=== PATIENT | male | born 1990 | race Caucasian/White ===

== ENCOUNTER 2019-06-26 12:15 | Emergency (ER) | payer OTHER ==
[~2019-06-26] VITALS: Ht 167.6 cm; Wt 72.6 kg
[2019-06-26 12:27] VITALS: BP_SYST 142
[2019-06-26] MEDS ORDERED: DIPH-TET-PERTUS Vaccine 0.5 ML VIAL (ADACEL) I.M. ONE (13:00)
[2019-06-26 13:36] VITALS: BP_SYST 128
== END 2019-06-26 13:36 | disposition home or self-care (01) ==
LOC: SED 12:15
DX: S61.311A Laceration without foreign body of left index finger with damage to nail, initial encounter (principal); W26.8XXA Contact with other sharp object(s), not elsewhere classified, initial encounter; Y93.89 Activity, other specified; Y92.89 Other specified places as the place of occurrence of the external cause; Y99.8 Other external cause status
CPT/HCPCS: 90715; 99283

== ENCOUNTER 2022-02-05 10:23 | Emergency (ER) | payer SELFPAY ==
[~2022-02-05] VITALS: Ht 167.6 cm; Wt 61.2 kg
[2022-02-05 10:23] VITALS: BP_SYST 117
[2022-02-05] MEDS ORDERED: ACETAMINOPHEN 500 MG TABLET ONE (10:50)
--- NOTE | 2022-02-05 13:33 | NUR ---
BROUGHT BACK TO HALLWAY VIA WHEELCHAIR, AWAITING TO BE SEEN BY
--- NOTE | 2022-02-05 13:35 | NUR ---
Pt brought by self, A&Ox4, pt presents to ER with L calf pain and no feet swelling, denies trauma, skin pink and warm, cap refill <3, VSS
--- NOTE | 2022-02-05 14:11 | NUR ---
DR PERALTA EVALUATING PT IN [facility]
--- NOTE | 2022-02-05 15:30 | NUR ---
Pt A&Ox4, VSS, Respirations even and unlabored
[2022-02-05 16:53] LABS: HEMATOCRIT 23.1 % (36-54); MEAN CORPUSCULAR VOLUME 72 fL (79.0-98.0); PLATELET COUNT (AUTO) 387 K/uL (130-430); RED BLOOD CELL COUNT(AUTO) 3.21 MIL/uL (4.2-6.2); RED CELL DISTRIBUTION WIDTH 17.5 % (9.0-15.0); WHITE BLOOD COUNT (AUTO) 20.6 K/uL (4.8-10.8)
[2022-02-05 16:57] LABS: EOSINOPHILS % (AUTO) 0.1 % (0.0-4.0); LYMPHOCYTES % (AUTO) 12.4 % (20.5-51.5); MONOCYTES % (AUTO) 8.7 % (1.7-9.3)
[2022-02-05 16:58] LABS: BASOPHILS # (AUTO) 0.2 K/uL (0.0-0.2); BASOPHILS % (AUTO) 0.8 % (0.0-2.0); LYMPHOCYTES # (AUTO) 2.6 K/uL (1.0-5.5); MONOCYTES # (AUTO) 1.8 K/uL (0.0-1.0); NEUTROPHILS # (AUTO) 16.4 K/uL (1.8-7.7)
--- NOTE | 2022-02-05 17:31 | NUR ---
Patient does not wish to proceed with medical care recommended by Dr Barrios . Patient given information related to possible complications, up to and including , which could occur as a result of leaving hospital at this time. Patient verbalizes understanding of risks involved leaving against medical advice. Patient has signed AMA form.
[2022-02-05 17:33] VITALS: BP_SYST 117
[2022-02-05 17:37] LABS: ANION GAP 11 (5-15); CALCIUM 8.6 mg/dL (8.4-11.0); CHLORIDE 97 mmol/L (98-107); CREATININE 0.97 mg/dL (0.55-1.30); GLUCOSE 105 mg/dL (70-99); POTASSIUM 4.7 mmol/L (3.5-5.1); UREA NITROGEN, BLOOD 10 mg/dL (8-21)
[2022-02-05 17:55] LABS: ALANINE AMINOTRANSFERASE 53 U/L (12-78); ALBUMIN 2.3 g/dL (3.4-4.8); ASPARTATE AMINOTRANSFERASE 62 U/L (10-37); FREE T4 (FREE THYROXINE) 1.4 ng/dl (0.8-1.5); TOTAL BILIRUBIN 0.6 mg/dL (0.0-1.0)
[2022-02-05 17:59] LABS: GFR AFRICAN AMERICAN 118 mL/min (>90)
[2022-02-05 20:59] LABS: BILIRUBIN,URINE NEGATIVE (NEGATIVE); BLOOD, URINE NEGATIVE (NEGATIVE); CLARITY/URINE CLEAR (CLEAR); COLOR,URINE YELLOW (YELLOW); GLUCOSE,URINE NEGATIVE (NEGATIVE); KETONES,URINE NEGATIVE (NEGATIVE); LEUKOCYTE ESTERASE ,URINE NEGATIVE (NEGATIVE); NITRITE, URINE NEGATIVE (NEGATIVE); PROTEIN URINE NEGATIVE (NEGATIVE)
[2022-02-05 22:57] LABS: BARBITURATE, URINE NEGATIVE (NEG <=200); BENZODIAZEPINE, URINE NEGATIVE (NEG <=150); CANNABINOID, URINE POSITIVE (NEG <=50); COCAINE, URINE NEGATIVE (NEG <=150); METHAMPHETAMINES SCREEN,URINE NEGATIVE (NEG <=500); OPIATE, URINE NEGATIVE (NEG <=100); PHENCYCLIDINE SCREEN,URINE NEGATIVE (NEG <=25); UR TRICYCLIC ANTIDEPRESSANTS NEGATIVE (NEG <=300); URINE AMPHETAMINE NEGATIVE (NEG <=500); URINE METHADONE NEGATIVE (NEG <=200); URINE OXYCODONE SCREEN NEGATIVE (NEG <=100); URINE PROPOXYPHENE SCREEN NEGATIVE (NEG <=300)
== END 2022-02-05 17:33 | disposition left against medical advice (07) ==
LOC: SED 10:23
DX: R22.43 Localized swelling, mass and lump, lower limb, bilateral (principal); Z79.899 Other long term (current) drug therapy
CPT/HCPCS: 36415; 71045; 80053; 80307; 81003; 82550; 83880; 84439; 84443; 84484; 85025; 93005; 93970; 99285